=== PATIENT | male | born 1995 | race Caucasian/White ===

== ENCOUNTER 2017-03-16 15:54 | Emergency (ER) | payer BC ==
--- NOTE | 2017-03-16 17:24 | UC ---
Lower Extremity/Ankle HPI - HPI Summary HPI Summary: Left ankle pain after injury playing soccer. Hit with cleat on the medial malleolus and had eversion injury. - History of Current Complaint Chief Complaint: UCLowerExtremity Stated Complaint: SPORTS INJ FOOT Hx Obtained From: Patient Onset/Duration: Sudden Onset - 1:30 PM in a soccer game Severity Initially: Moderate Severity Currently: Severe Aggravating Factor(s): Standing, Ambulation Alleviating Factor(s): Rest, Elevation, Ice Able to Bear Weight: No - Allergies/Home Medications Allergies/Adverse Reactions: Allergies Allergy/AdvReac Type Severity Reaction Status Date / Time Amoxicillin [From Augmentin] Allergy Rash Verified 03/16/17 16:54 Clavulanic Acid Allergy Rash Verified 03/16/17 16:54 [From Augmentin] Home Medications: Home Medications Ibuprofen TAB* [Advil TAB*] 800 mg PO Q6H PRN 03/16/17 [History Confirmed ] Mometasone NASAL (NF) [Nasonex (NF)] 1 spray .SEE ORDER DAILY 03/16/17 [History Confirmed 03/16/17] PMH/Surg Hx/FS Hx/Imm Hx Previously Healthy: Yes - Surgical History Surgical History: Yes Surgery Procedure, Year, and Place: WISDOM TEETH EXTRACTION. TEAR DUCT. EAR TUBES - Family History Known Family History: Negative: Cardiac Disease, Hypertension, Diabetes - Social History Occupation: Student Lives: Dormitory/Roommates Alcohol Use: Occasionally Substance Use Type: None Smoking Status (MU): Never Smoked Tobacco Have You Smoked in the Last Year: No Review of Systems ENT: Nasal Discharge, Sinus Congestion Respiratory: Cough Musculoskeletal: Arthralgia - left ankle. Is Patient Immunocompromised?: No All Other Systems Reviewed And Are Negative: Yes Physical Exam Triage Information Reviewed: Yes Appearance: Well-Appearing, No Pain Distress - sitting with leg elevated., Well- Nourished Vital Signs: Initial Vital Signs Temp 98.4 F 03/16/17 16:46 Pulse 64 03/16/17 16:46 Resp 18 03/16/17 16:46 BP 118/68 03/16/17 16:46 Pulse Ox 99 03/16/17 16:46 Vital Signs Reviewed: Yes Eyes: Positive: Conjunctiva Clear Neck exam: Normal Neck: Positive: Nontender, Enlarged Nodes @ - shotty left anterior cervical nodes Respiratory: Positive: Lungs clear Cardiovascular Exam: Normal Musculoskeletal: Positive: ROM Limited @ - Left ankle/ foot, Other: - swelling over the lateral ankle. Tender over the lateral malleolus, distal fibula and 5th metatarsal head. Neurological Exam: Normal - normal sensation. Psychological Exam: Normal Skin Exam: Normal Lower Extremity Course/Dx - Differential Dx/Diagnosis Differential Diagnosis/HQI/PQRI: Contusion, Fracture (Closed), Sprain, Strain Provider Diagnoses: Left ankle sprain. Left foot sprain. Discharge - Discharge Plan Condition: Stable Disposition: HOME Patient Education Materials: Ankle Sprain (ED), Foot Sprain (ED) Referrals: Deborah Ortiz MD [Medical Doctor] - 1 Day ([facility] follow up ankle sprain.) Additional Instructions: Use cam boot for comfort. Stay non-weight bearing for now, until you see orthopedist.
--- NOTE | 2017-03-16 17:54 | RAD ---
INDICATION: Left ankle injury COMPARISON: None TECHNIQUE: AP, lateral, and oblique views were obtained. FINDINGS: There is no acute fracture. Ankle mortise is intact. There is moderate lateral soft tissue swelling. IMPRESSION: SOFT TISSUE SWELLING. NO ACUTE FRACTURE.
--- NOTE | 2017-03-16 17:54 | RAD ---
INDICATION: Left foot injury COMPARISON: None TECHNIQUE: AP, lateral, and oblique views were obtained. FINDINGS: The bony structures, joint spaces, and soft tissues are normal for age. IMPRESSION: NEGATIVE EXAMINATION.
== END 2017-03-16 18:20 | disposition home or self-care (01) ==
LOC: UCCORT 15:54
DX: S93.402A Sprain of unspecified ligament of left ankle, initial encounter (principal); S93.602A Unspecified sprain of left foot, initial encounter; W21.31XA Struck by shoe cleats, initial encounter; Y93.66 Activity, soccer; Y92.322 Soccer field as the place of occurrence of the external cause; Z88.1 Allergy status to other antibiotic agents
CPT/HCPCS: 99202; G0463

== ENCOUNTER 2017-06-18 09:29 | Emergency (ER) | payer BC ==
[2017-06-18 12:02] VITALS: BP 136/69
--- NOTE | 2017-06-18 12:20 | UC ---
Lower Extremity/Ankle HPI - HPI Summary HPI Summary: Right foot pain lateral distal 5th metatarsal is where he is pointing. This occurred suddenly as he was playing soccer last night. He was running and there was no known trauma. - History of Current Complaint Chief Complaint: UCLowerExtremity Stated Complaint: RT FOOT INJURY Time Seen by Provider: 06/18/17 12:12 Hx Obtained From: Patient Onset/Duration: Sudden Onset, Lasting Hours Severity Initially: Severe Severity Currently: Moderate Pain Intensity: 7 Aggravating Factor(s): Standing, Ambulation Alleviating Factor(s): Rest, Elevation Able to Bear Weight: No - Risk Factors Gout Risk Factors: Negative DVT Risk Factors: Negative - Allergies/Home Medications Allergies/Adverse Reactions: Allergies Allergy/AdvReac Type Severity Reaction Status Date / Time amoxicillin [From Augmentin] Allergy Rash Verified 06/18/17 11:56 clavulanic acid Allergy Rash Verified 06/18/17 11:56 [From Augmentin] Home Medications: Home Medications NK [No Home Medications Reported] 06/18/17 [History Confirmed 06/18/17] PMH/Surg Hx/FS Hx/Imm Hx Previously Healthy: No - Left foot injury in the past. - Surgical History Surgical History: Yes Surgery Procedure, Year, and Place: WISDOM TEETH EXTRACTION. TEAR DUCT. EAR TUBES - Family History Known Family History: Negative: Cardiac Disease, Hypertension, Diabetes - Social History Occupation: Student Alcohol Use: Occasionally Substance Use Type: None Smoking Status (MU): Never Smoked Tobacco Have You Smoked in the Last Year: No Review of Systems Musculoskeletal: Arthralgia All Other Systems Reviewed And Are Negative: Yes Physical Exam Triage Information Reviewed: Yes Appearance: No Pain Distress, Well-Nourished, Pain Distress - He has obvious limp when walking to his room. Vital Signs: Initial Vital Signs Temp 98.3 F 06/18/17 11:57 Pulse 72 06/18/17 11:57 Resp 16 06/18/17 11:57 BP 136/69 06/18/17 11:57 Pulse Ox 97 06/18/17 11:57 Vital Signs Reviewed: Yes Eye Exam: Normal Eyes: Positive: Conjunctiva Clear ENT: Positive: Normal ENT inspection Neck: Positive: Supple, Nontender, No Lymphadenopathy Respiratory: Positive: Lungs clear, Normal breath sounds, No respiratory distress, No accessory muscle use. Negative: Respiratory distress, Decreased breath sounds, Accessory muscle use, Crackles, Rhonchi, Stridor, Wheezing Cardiovascular: Positive: RRR, No Murmur, Pulses Normal Abdomen Description: Positive: No Organomegaly, Soft. Negative: Distended, Guarding Musculoskeletal Exam: Other - No fibula, achilles, heel tenderness. Ankle stable and no laxity. There is isolated tenderness of the distal 5th metatarsal and no swelling or bruising. No proximal tenderness. Neurological: Positive: Alert, Muscle Tone Normal. Negative: Fatigued Psychological: Positive: Age Appropriate Behavior Skin: Negative: rashes Procedures - Splinting Hand-Made Type: orthoglass Splint: posterior walking Pre-Proc Neuro Vasc Exam: normal Post-Proc Neuro Vasc Exam: normal Diagnostics - Radiology No standard instances Radiology Interpretation Completed By: ED Physician - 5th metatarsal fracture. Lower Extremity Course/Dx - Differential Dx/Diagnosis Provider Diagnoses: 5th metatarsal fracture. Discharge - Discharge Plan Condition: Good Disposition: HOME Patient Education Materials: Foot Fracture in Children (ED) Forms: *Physical Education Release Referrals: Neil Romero MD [Medical Doctor] - Non Staff,Doctor [Primary Care Provider] -
--- NOTE | 2017-06-18 12:52 | RAD ---
HISTORY: Right foot pain after playing soccer COMPARISONS: None VIEWS: 3, Frontal, lateral, and oblique views of the right foot FINDINGS: BONE DENSITY: Normal. BONES: There is a transverse nondisplaced fracture of the proximal fifth metatarsal, 2.7 cm from the base of the fifth metatarsal. JOINTS: There is no arthropathy. ALIGNMENT: There is no dislocation. SOFT TISSUES: Unremarkable. OTHER FINDINGS: None. IMPRESSION: TRANSVERSE NONDISPLACED FRACTURE OF THE PROXIMAL FIFTH METATARSAL.
== END 2017-06-18 13:07 | disposition home or self-care (01) ==
LOC: UCCORT 09:29
DX: S92.354A Nondisplaced fracture of fifth metatarsal bone, right foot, initial encounter for closed fracture (principal); Y93.02 Activity, running; Y93.66 Activity, soccer; Y92.9 Unspecified place or not applicable
CPT/HCPCS: 99212; G0463

== ENCOUNTER 2017-06-26 10:39 | Day surgery (SDC) | payer BC ==
[~2017-06-26 10:39] MED LIST: Buffered Lidocaine 0.9% SYRIN* 5 ML/SYR SYRINGE INTRADERM ONE; Sodium Citrate/Citric Acid* 15 ML UDC PO ONE
[2017-06-26] MEDS ORDERED: Buffered Lidocaine 0.9% SYRIN* 5 ML/SYR SYRINGE ONE (10:41)
[2017-06-26] MEDS ORDERED: Sodium Citrate/Citric Acid* 15 ML UDC ONE (10:41)
[2017-06-26] MEDS ORDERED: Bupivacaine 0.25% SDV* 30 ML ONE ×3 (11:11→12:20)
[2017-06-26] MEDS ORDERED: Midazolam* 1 MG/ML 2 ML VIAL (2 MG) ONE ×2 (11:53→12:09)
[2017-06-26] MEDS ORDERED: fentaNYL* 50 MCG/ML 2 ML VIAL (100 MCG VIAL) ONE (11:53)
[2017-06-26] MEDS ORDERED: Clindamycin 600 MG IVPREMIX(* 600 MG/50 ML SDV ONE (11:59)
[2017-06-26] MEDS ORDERED: Propofol* 10 MG/ML 20 ML BTL IV PUSH ONE (12:19)
[2017-06-26] MEDS ORDERED: Lidocaine 2% PF * 5 ML VIAL ONE (12:19)
[2017-06-26] MEDS ORDERED: Naloxone* 0.4 MG/ML 1 ML VIAL IV PRN (12:45)
[2017-06-26 13:43] VITALS: BP 117/57
--- NOTE | 2017-06-26 17:36 | OP ---
Operative Report - Blank - Operative Report Date of Operation: 06/26/17 Note: PATIENT: Adilson Pickett DATE OF : [birth year] DATE OF SURGERY: 06/26/17 SURGEON: Chaitanya Zarco MD [facility] PROVIDER: BONIFACIO Quispe , whos assistance was necessary for positioning, retraction, help with instrumentation, and closure. ANESTHESIOLOGIST: Dr. Cardenas PREOPERATIVE DIAGNOSIS: Right 5th metatarsal fracture. POSTOPERATIVE DIAGNOSIS: Right 5th metatarsal fracture. OPERATION: Right 5th metatarsal fracture open reduction and internal fixation. ANESTHESIA: MAC IMPLANTS: Arthrex 5.5mm Guzman Fracture Screw, 55 mm in length. TOURNIQUET TIME: none SPECIMENS: none ESTIMATED BLOOD LOSS: minimal COMPLICATIONS: none STATUS: Stable from the operating room to the recovery room and then home. 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 Both operative and non operative treatment alternatives were reviewed. Further, the nature and risks of surgery were reviewed in careful detail, in the office as well as the pre-operative holding area. Our discussions regarding the risks of surgery included, but were not limited to, infection, wound problems, nerve injury, neuroma, RSD, persistent symptoms, blood clot, nonunion, malunion, hardware failure, failure of the surgery, and even the remote chance of catastrophic complication, including loss of limb. DESCRIPTION OF PROCEDURE: The patient was seen in the preoperative holding unit and informed written consent was obtained. The appropriate extremity was marked. The patient was then brought to the operating room and carefully positioned on the operating room table. Anesthesia was induced. All bony prominences were padded with great care. A chlorhexidine based pre-scrub was performed followed by a chloraprep prep and drape in standard sterile fashion. A surgical safety pause was then conducted in which we confirmed the appropriate patient, extremity, planned procedure, availability of equipment, indication and administration of prophylactic antibiotics, and DVT prophylaxis in the form of a compression boot on the non-surgical extremity. I began by fluoroscopically identifying the course of the fifth metatarsal. I then made an approximately 1-cm incision in line with the fifth metatarsal, approximately 2 cm proximal to the base. I carefully spread down to the base of the fifth metatarsal with great care taken to protect the branches of the sural nerve. I then placed a guidewire that was intramedullary that was carefully positioned along the course of the fifth metatarsal. I confirmed the position of the guidewire utilizing multiple views. The depth of the guidewire was measured. I then overdrilled the guidewire utilizing a 3.5mm cannulated drill. I used a drill sleeve to protect the soft tissues throughout the procedure. I then removed the drill and tapped first with a 4.5mm tap and then a 5.5mm tap. The 5.5mm tap had great purchase. I again measured the length of the screw from the tap. I then removed the tap and guidewire and placed the solid 5.5mm screw. This had excellent purchase and an excellent bite on the fifth metatarsal. At this point, I obtained final fluoroscopic images. We irrigated and then closed in layers utilizing 3-0 Monocryl and 3-0 nylon suture. A sterile dressing was then applied followed by a splint with the ankle in neutral position. The patient was then awakened from anesthesia and transferred to the recovery room in stable condition. There were no complications. All needle and sponge counts were correct at the end of the case. ATTESTATION: I attest I was present and scrubbed and performed the critical portions of the procedure myself. POSTOPERATIVE PLAN: The patient will remain [id number] for an anticipated duration of six weeks. Follow up will be in two weeks for likely suture removal and Steri-Strip application. We will plan to transition the patient into a tall Aircast boot at two weeks, and may begin gentle active range of motion of the ankle, avoiding inversion.
--- NOTE | 2017-06-27 07:19 | RAD ---
INDICATION: Right foot fifth metatarsal traumatic fracture operative reduction and internal fixation. COMPARISON: Comparison is made with a prior x-ray study of the right foot from June 18, 2017. TECHNIQUE: 71.1 seconds of intermittent fluoroscopic guidance were provided and 4 spot films of the right foot were obtained in the operating room. FINDINGS: The films demonstrate placement of a surgical screw spanning the fracture at the base of the fifth metatarsal. The bones are normal alignment. IMPRESSION: INTRAOPERATIVE CONTROL FILMS. CPT II Codes: 6045F
== END 2017-06-26 14:16 | disposition home or self-care (01) ==
LOC: OR 10:39
PROVIDERS: ATTEND Orthopaedic Surgery
DX: S92.354A Nondisplaced fracture of fifth metatarsal bone, right foot, initial encounter for closed fracture (principal); X50.0XXA Overexertion from strenuous movement or load, initial encounter; Y93.66 Activity, soccer; Y92.322 Soccer field as the place of occurrence of the external cause
CPT/HCPCS: 76000; A9270-GY; C1713; J2250; J2704; J3010

== ENCOUNTER 2017-12-30 18:09 | Emergency (ER) | payer BC ==
[2017-12-30 18:30] VITALS: BP 110/70
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
== END 2017-12-30 19:35 | disposition home or self-care (01) ==
LOC: UCCORT 18:09
DX: L03.115 Cellulitis of right lower limb (principal); Z88.0 Allergy status to penicillin
CPT/HCPCS: 99212; G0463